=== PATIENT | male | born 1985 | race Hispanic/Latino ===

== ENCOUNTER → 2023-01-13 | Outpatient (CLI) | payer OTHER ==
[~2023-01-13] MED LIST: ALBUTEROL 0.083% 2.5 MG/3 ML INH IH ONE
== END | disposition home or self-care (01) ==
LOC: EDBD 10:30 → RESP 10:34
PROVIDERS: ATTEND Chiropractor
DX: J42 Unspecified chronic bronchitis (principal)
CPT/HCPCS: 94060